=== PATIENT | female | born 1970 | race Caucasian/White ===

== ENCOUNTER → 2024-05-02 07:19 | Outpatient (REF) | payer OTHER, SELFPAY | LOC: WDC 07:19 | PROVIDERS: ATTENDING PHYSICIAN Advanced Practice Midwife; FAMILY PHYSICIAN Nurse Practitioner Adult Health | DX: Z12.31 Encounter for screening mammogram for malignant neoplasm of breast (principal) | CPT/HCPCS: 77063; 77067 ==

== ENCOUNTER 2024-10-02 06:24 | Day surgery (SDC) | payer OTHER, SELFPAY | END 2024-10-02 13:20 | disposition home or self-care (01) | LOC: GI 06:24 | PROVIDERS: ATTENDING PHYSICIAN Internal Medicine Gastroenterology | DX: D12.4 Benign neoplasm of descending colon (principal); K63.5 Polyp of colon; Z80.0 Family history of malignant neoplasm of digestive organs | CPT/HCPCS: 45385; 45380; 88305 ==

== ENCOUNTER 2025-01-17 10:59 | Emergency (ER) | payer OTHER, SELFPAY ==
[2025-01-17 11:06] VITALS: BP 145/78
[2025-01-17 11:36] LABS: Hematocrit 38.0 % (37.0-47.0); Hemoglobin 12.5 g/dL (12.0-16.0); Mean Corp Hgb Conc. 32.9 g/dL (33.0-37.0); Mean Corpuscular Volume 86.0 fL (81.0-99.0); Nucleated Red Blood Cells % 0 %; Platelet Count 297 10^3/uL (130-400); Red Cell Dist. Width 12.8 % (11.5-14.5)
[2025-01-17 11:47] LABS: ALT (SGPT) 33 U/L (0-35); AST (SGOT) 40 U/L (14-36); Albumin 4.8 g/dl (3.5-5.0); Alkaline Phosphatase 57 U/L (38-126); Blood Urea Nitrogen 18 mg/dl (7-17); Calcium 9.5 mg/dl (8.4-10.2); Carbon Dioxide 30 mmol/L (22-30); Chloride 103 mmol/L (98-107); Glucose 109 mg/dl (70-99); Potassium 4.2 mmol/L (3.5-5.1); Sodium 139 mmol/L (135-145); Total Protein 7.5 g/dl (6.3-8.2); eGFR > 60.00
--- NOTE | 2025-01-17 14:22 | ED.GENMED ---
History of Present Illness
General
Chief Complaint: Skin Problem
Source: patient
Exam Limitations: none
Time Seen by Provider: 01/17/25 14:08
Nursing documentation reviewed up to this point in time: agreed with
History of Present Illness
History of Present Illness:
54-year-old female with no reported chronic medical issues presents to the ER for evaluation of bruising and swelling of the right forearm. Patient reports that a week ago she woke up with some swelling in the right forearm and she has had some
increased bruising and persistent bump in the forearm since. She initially seen in urgent care and was referred to the ER for evaluation. She was concerned for a blood clot because she says her mother has a history of DVT. She denies any trauma
or injury that she can recall. She says she did kill a wasp inside of her house the other day and wondered if it could be a bug bite but has not had any redness or warmth in the area and no fever.
Past History
Past History
ED Past Medical History: Psychiatric
ED Past Surgical History: None
Social History
Alcohol: Occasional
Personal:
Living: with family
Family History
Family History: Unable to obtain
Review of Systems
Review of Systems
All Other Systems: ROS reviewed and negative except as documented in HPI and ROS
Constitutional: Denies fever
Respiratory: Denies trouble breathing
Cardiac: Denies chest pain
Musculoskeletal: Reports muscle pain
Phy Exam
Physical Exam
Physical Exam:
General: Well appearing and non-toxic
HEENT: protecting airway
Neck: appears supple
CV: No evidence of cyanosis
Resp: No accessory muscle use
Abd: Non-distended
Extremities: No deformities; patient has palpable hematoma right proximal forearm with surrounding area of ecchymosis, mildly tender, not indurated or warm; full range of motion of the right elbow and shoulder, wrist and strong right radial pulse
Neuro: Alert
Psych: Normal affect
Scores
Heart Failure Risk
Heart Failure Risk Score: Not Applicable
Heart Score for Chest Pain Patients
STEMI patient?: Not applicable
Withdrawal Assessment of Alcohol
Withdrawal Assessment Completed?: Not applicable
Course
Orders/Labs/Results
Orders:
Orders
01/17/25 11:09
US Periph Venous UPPER Ext RT Urgent
Comment:
Reason For Exam: pain/swelling
01/17/25 11:25
CMP [Comprehensive Metabolic Panel] Urgent
Complete Blood Count/With Diff Urgent
Abnormal Lab Results
01/17/25
11:25
MCHC 32.9 L g/dL
(33.0-37.0)
BUN 18 H mg/dl
(7-17)
Glucose 109 H mg/dl
(70-99)
AST 40 H U/L
(14-36)
01/17/25 11:25
01/17/25 11:25
Vital Signs
Initial and Last Documented VS:
Initial Vital Signs
Temp Pulse Resp BP Pulse Ox
37.1 C 96 17 145/78 97
01/17/25 11:06 01/17/25 11:06 01/17/25 11:06 01/17/25 11:06 01/17/25 11:06
Last Documented Vital Signs
Temp Pulse Resp BP Pulse Ox
37.1 C 96 17 145/78 97
01/17/25 11:06 01/17/25 11:06 01/17/25 11:06 01/17/25 11:06 01/17/25 11:06
MDM/Problems Addressed
Differential Diagnosis Includes:
Hematoma, seroma, abscess, DVT
MDM/Problems Addressed:
54-year-old female presents with bruising and swollen lump on the right forearm in the absence of any trauma that she can recall. Vitals and exam as above. Ultrasound of the arm shows no signs of DVT. Labs were unremarkable�no thrombocytopenia.
She is not on blood thinners. Xzixr-wc-[id number] ultrasound of the area in question appears most consistent with hematoma. She has no fever, redness, warmth to suggest that this is an abscess. Unclear etiology of the hematoma but advised to compress
the area, ice, elevate and she can be discharged to follow-up with her primary doctor. All questions answered.
*Radiology
Radiology exam reviewed: radiology read reviewed
*Pulse Oximetry
SaO2: 97
Oxygen Mode of Delivery: Room air
Patient hypoxic: no (97%)
*Critical Care Note
Total Time (30-74mins, 75-104mins- exclusive of procedures): Not Applicable
Data Reviewed
Source: patient and records
ED Attending Note
-
Portions of this chart may have been created with voice recognition software.� Occasional wrong word or��sound alike� substitutions may have occurred due to the inherent limitations of voice recognition software.
Discharge Plan
Departure
Patient Disposition: Home (Routine Discharge)
Date of Disposition: 01/17/25
Time of Disposition: 14:21
Patient with high blood pressure during this ER visit?: No
Discharge Problem:
Hematoma of forearm
Instructions: Hematoma
Prescriptions:
No Action
zolpidem 5 MG tablet
Patient Comments:
dose unknown
lorazepam [Ativan] 1 MG tablet
Patient Comments:
dose unknown
Referrals:
Janice Reich MD [Family Provider, Internal Medicine] - Follow up in 1 week
Activity Restrictions/Additional Instructions:
Thank you for visiting the Emergency Department at [facility].
1. Please schedule a follow up appointment as directed. Call first thing tomorrow morning to make an appointment.
2. If indicated, please take your medications as instructed and indicated on discharge paperwork.
3. If any of your symptoms do not improve, or persist, or become more severe within 6-12 hours, please return to the emergency department for further care.
4. Please return to the emergency department if you develop a headache, neck pain/stiffness, fever greater than 100.4F, chest pain, shortness of breath, persistent nausea, vomiting, slurred speech, difficulty walking, numbness/tingling, weakness,
signs of infection or any other symptoms that are worrisome to you.
Please call [phone] if you have any questions.
Interventions
Interventions:
*Risk Screen - Suicide Last Done: 01/17/25 11:09
*General Assessment Last Done: 01/17/25 11:09
*Neglect/Abuse Screening Last Done: 01/17/25 11:09
*ED COVID-19 Vaccine History Last Done: 01/17/25 11:09
*ED Influenza Vaccine History Last Done: 01/17/25 11:09
Discharge Date and Time
Print Language: SLOVAK
== END 2025-01-17 14:39 | disposition home or self-care (01) ==
LOC: EMR 10:59
PROVIDERS: Emergency Medicine; EMERGENCY PHYSICIAN Emergency Medicine; FAMILY PHYSICIAN Internal Medicine
DX: S50.11XA Contusion of right forearm, initial encounter (principal); X58.XXXA Exposure to other specified factors, initial encounter
CPT/HCPCS: 99284; 80053; 85025; 93971